=== PATIENT | male | born 1965 | race Caucasian/White ===

== ENCOUNTER 2016-09-24 09:38 | Day surgery (SDC) | payer BC ==
[2016-09-18 17:03] VITALS: BMI 30.6
[2016-09-24] MEDS ORDERED: PROPOFOL 20 ML ONE ×2 (10:49)
[2016-09-24 11:50] VITALS: TEMP 97.9
[2016-09-24 12:22] VITALS: BP 110/65; PULSE 76
== END 2016-09-24 12:22 | disposition home or self-care (01) ==
LOC: FASU-ENDO 09:38
PROVIDERS: ATTEND Internal Medicine Gastroenterology
PROC: 0DJD8ZZ Inspection of Lower Intestinal Tract, Via Natural or Artificial Opening Endoscopic (ICD-10-PCS; principal; 2016-09-24 11:19)
DX: Z12.11 Encounter for screening for malignant neoplasm of colon (principal); K64.8 Other hemorrhoids